=== PATIENT | female | born 1965 | race Caucasian/White ===

== ENCOUNTER 2018-09-25 07:08 | Day surgery (SDC) | payer MEDICARE ==
[~2018-09-25] VITALS: Ht 170.2 cm; Wt 86.4 kg
[2018-09-25] VITALS (11 sets, daily range): BP systolic 145–168; BP diastolic 86–92; Ht 170.2 cm; Wt 86.4 kg
[~2018-09-25 07:08] MED LIST: CYCLOBENZAPRINE10 MG PO; CYMBALTA60 MG PO; LASIX40 MG; LEVEMIR IN100 UNITS/ SC; LIPITOR40 MG PO; LYRICA50 MG PO; NORCO 7.5/325 T1 TA1 PO; NOVOLOG100 UNIT/1; PRINIVIL20 MG; SYNTHROID100 MCG PO
[2018-09-25 07:26] LABS: HEMATOCRIT 41.4 % (36.0-48.0); HEMOGLOBIN 14.6 g/dL (12-16); MCH 31.5 pg (26.0-34.0); MCHC 35.3 g/dL (31.0-37.0); MCV 89.2 fL (80.0-100.0); RBC 4.64 10x6/uL (4.00-5.40); RDW 12.3 % (11.5-14.5); WBC 7.4 10x3/uL (4.8-10.8)
[2018-09-25 08:59] LABS: ALBUMIN 3.6 g/dL (3.4-5.0); ANION GAP 14.7 mmol/L (8-16); BILIRUBIN - TOTAL 0.51 mg/dL (0.2-1.3); CARBON DIOXIDE 26.4 mmol/L (21.0-32.0); CREATININE - SERUM 0.9 mg/dL (0.6-1.3); POTASSIUM - SERUM 4.1 mmol/L (3.5-5.1); PROTEIN - SERUM 6.9 g/dL (6.4-8.2)
[2018-09-26] VITALS (8 sets, daily range): BP systolic 143–165; BP diastolic 75–95
--- NOTE | 2018-10-28 10:06 | OP ---
PATIENT NAME: LEROY SUMMERS MEDICAL RECORD: [id number] :67 LOCATION:[facility] ADMISSION DATE: SURGEON: LENORE DIAZ MD DATE OF OPERATION: 09/25/2018 PREOPERATIVE DIAGNOSES: Osteophyte formation and disc herniation at C5-C6 and C6-C7. POSTOPERATIVE DIAGNOSES: Osteophyte formation and disc herniation at C5-C6 and C6-C7. PROCEDURE: Anterior cervical discectomy and fusion with removal of osteophytes; interbody cage with PEEK interbody cage and bone stem cells allograft; and Zavation anterior cervical plate and screws, separate plate and screws to span C5, C6, and C7. SURGEON: Lenore Diaz MD DESCRIPTION OF TECHNIQUE: After induction of general endotracheal anesthesia, the patient was positioned supine on the operating table. Neck was prepped and draped in usual sterile fashion. Fluoroscopic x-ray and freer localized the C5-C6 interspace under sterile prep and drape. Next, a transverse skin incision was carried out from the midline to the sternocleidomastoid muscle. The platysma was divided with Bovie cautery. Then, using blunt and sharp dissection with Metzenbaum scissors, I proceeded in avascular plane medial to the carotid sheath. The C5-C6 and C6-C7 interspaces were identified with fluoroscopic x-ray and spinal needle. The longus colli muscles were elevated from bodies of C5, C6, and C7. A self-retaining retractor was placed deep in longus colli muscles. Disc space was incised at each level after inserting [place] pins at C5, C6, and C7. Disc material was removed with combination of pituitary rongeurs and curettes. Posteriorly, the posterior longitudinal ligament was removed with Cloward rongeurs. Following this, the dura was decompressed well on both sides. A peek interbody cage was placed at each interspace under distraction. Good position of hardware was confirmed with fluoroscopic x-ray. Next, the [place] pins were removed and then a separate plate spanning the C5-C6 and C6-C7 interspaces was placed over the anterior portion of spine. Self-drilling screws were used to span the C5-C6 and C6-C7 interspaces with anterior cervical plate. The locking cams were tightened down over screw heads. Good position of the hardware was confirmed with fluoroscopic x-ray. Meticulous hemostasis was maintained throughout the wound. The wound was irrigated with copious amounts of Ancef irrigant solution. The platysma and subdermal layer were closed with interrupted 3-0 Vicryl suture. The skin was reapproximated with Steri-Strips and benzoin. A sterile dressing was applied to the wound. The patient was awakened in good condition and taken to recovery. All counts were reported as correct. Estimated blood loss was minimal. TRANSINT:[id number] Voice Confirmation ID: [id number] DOCUMENT ID: [id number] OPERATIVE REPORT [id number] LEROY SUMMERS JOHN MD at 1006 CC: [id number] DICTATION DATE: 10/22/18 1416 INSTALLMENT DEALER: 10/22/18 1801 [facility] 09/26/[address] [id number]
== END 2018-09-26 10:30 | disposition home or self-care (01) ==
LOC: D.OPS 07:08 → D.ICU 07:08 → D.OPS 09-26 10:30
PROVIDERS: Anesthesiology
DX: M25.78 Osteophyte, vertebrae (principal); M50.222 Other cervical disc displacement at C5-C6 level

== ENCOUNTER 2018-10-10 17:12 | Observation (INO) | payer MEDICARE ==
[~2018-10-10] VITALS: Ht 170.2 cm; Wt 86.4 kg
--- NOTE | 2018-10-10 19:15 | NUR ---
PT REQUESTING PAIN MEDICATION. SPOKE WITH DR FAROOQ. NEW ORDER RECEIVED. PT NOT IN COMPUTER SYSTEM YET TO PLACE ORDER IN COMPUTER AND GIVE PT MEDICATION. WILL GIVE MEDICATION SOON POSSIBLE.
--- NOTE | 2018-10-10 19:50 | NUR ---
23 GUAGE SITED TO RIGHT UPPER ARM WITH GOOD BLOOD RETURN NOTED.
[2018-10-11] VITALS: BP 120/51
[2018-10-11 01:10] LABS: CREATININE - SERUM 1.1 mg/dL (0.6-1.3)
[2018-10-11 01:44] VITALS: BP 119/76; Ht 170.2 cm; Wt 86.4 kg
[2018-10-11 04:00] VITALS: BP 164/90
[2018-10-11 07:05] LABS: HEMATOCRIT 39.6 % (36.0-48.0); HEMOGLOBIN 13.9 g/dL (12-16); LYMPHOCYTES 52.8 % (15-50); MCHC 35.1 g/dL (31.0-37.0); NEUTROPHILS 39.5 % (40-80); PLATELET COUNT 209 10x3/uL (130-400); RBC 4.35 10x6/uL (4.00-5.40); RDW 12.6 % (11.5-14.5); WBC 9.3 10x3/uL (4.8-10.8)
[2018-10-11 07:12] LABS: CALCIUM 8.6 mg/dL (8.5-10.1); CARBON DIOXIDE 25.5 mmol/L (21.0-32.0); CHLORIDE - SERUM 100 mmol/L (98-107); POTASSIUM - SERUM 5.3 mmol/L (3.5-5.1); SODIUM 135 mmol/L (136-145); UREA NITROGEN 13 mg/dL (7-18)
[2018-10-11 07:13] LABS: CALC OSMOLALITY 280 mosm/kg (275-300); CREATININE - SERUM 0.7 mg/dL (0.6-1.3); GLUCOSE 293 mg/dL (74-106); eGFR NON AFRICAN AMERICAN > 90 mL/min (90-120)
--- NOTE | 2018-10-11 08:03 | NUR ---
PT ALERT X 4. BREATH SOUNDS CLEAR BILAT. IV TO RIGHT UPPER ARM, SALINE LOCKED. PAIN AT 7/10, PT NOT WANTING MEDICATION AT THIS TIME, WILL MONITOR. FAMILY AT BEDSIDE. BED LOW, CALL LIGHT IN REACH, NO OTHER NEEDS AT THIS TIME.
[2018-10-11 08:05] VITALS: BP 140/53
[2018-10-11] MEDS ORDERED: NORCO 10-325 TA1 TAB PO (13:19)
== END 2018-10-11 14:19 | disposition home or self-care (01) ==
LOC: D.SDCHOLD 17:12 → D.MS 17:12 → OBSVTIME 17:13 → D.MS 19:25
PROVIDERS: ADMIT Neurological Surgery
DX: R13.10 Dysphagia, unspecified (principal); I10 Essential (primary) hypertension; E11.9 Type 2 diabetes mellitus without complications; E03.9 Hypothyroidism, unspecified; J44.9 Chronic obstructive pulmonary disease, unspecified; F32.9 Major depressive disorder, single episode, unspecified; F41.9 Anxiety disorder, unspecified; Z72.0 Tobacco use